=== PATIENT | female | born 1985 | race African-American/Black ===

== ENCOUNTER 2017-06-24 17:38 | Emergency (ER) | payer BC, OTHER ==
[~2017-06-24] VITALS: Ht 175.3 cm; Wt 136.1 kg
--- NOTE | ~2017-06-24 | EKG ---
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
[~2017-06-24 17:38] MED LIST: A.E.R PADS1 JAR TOP; ACETAMINOPHEN-120 ML PO; AMOXICILLIN 50500 MG PO; APAP W/CODEINE1 TA2 PO; DERMOPLAST SPRA56 ML; ESCITALOPRAM OX10 MG PO; FLAGYL500 MG PO; FLONASE 0.05%50 MCG NASAL; IBUPROFEN 600600 M1 PO; IBUPROFEN 800800 M1 PO; LANOLIN56 GM; LEXAPRO 10 MG T10 MG PO; NOHOMEMEDICATIONS; NORCO 5-325 TA1 EACH PO; PREDNISONE 20 M20 M1 PO; PROCTOFOAM-HC F10 G1 RE; TAMIFLU PO; TESSALON PERLE100 MG PO; VENTOLIN17 GM INH; ZOFRAN4 MG PO; ZPAK PO
[2017-06-24] MEDS ORDERED: NEXPLANON68 MG SW&SWALLOW (18:56)
[2017-06-24 18:58] LABS: ABSOLUTE NEUTROPHILS 2.9 thou/uL (1.4-8.2); BASOPHILS 0.4 % (0.0-2.0); EOSINOPHILS 1.7 % (0.0-3.0); HEMATOCRIT 39.8 % (37.0-47.0); HEMOGLOBIN 12.9 gm/dL (12.0-15.0); LYMPHOCYTES 38.4 % (24.0-44.0); MCH 25.9 pg (26.0-34.0); MCHC 32.5 g/dL (28.0-37.0); MCV 79.6 fL (80.0-100.0); PLATELET COUNT 310 thou/uL (150-400); POLYS 54.5 % (36.0-66.0); RBC 4.99 mil/uL (4.20-5.00); RDW 13.5 % (10.5-14.5); WBC 5.3 thou/uL (4.0-11.0)
[2017-06-24 19:10] LABS: CALCIUM 8.7 mg/dL (8.5-10.1); CREATININE 0.8 mg/dL (0.6-1.0); POTASSIUM 3.7 mmol/L (3.5-5.1)
== END 2017-06-24 19:40 | disposition home or self-care (01) ==
LOC: ER 17:38
PROVIDERS: Physician Assistant
DX: R07.89 Other chest pain (principal); F17.210 Nicotine dependence, cigarettes, uncomplicated; F10.99 Alcohol use, unspecified with unspecified alcohol-induced disorder; Z88.1 Allergy status to other antibiotic agents

== ENCOUNTER 2017-09-05 21:39 | Emergency (ER) | payer BC, OTHER ==
[~2017-09-05] VITALS: Ht 175.3 cm; Wt 136.1 kg
[~2017-09-05 21:39] MED LIST changes: +NEXPLANON68 MG SW&SWALLOW
[2017-09-05] MEDS ORDERED: AMOXICILLIN500 M1 PO (21:47)
[2017-09-05] MEDS ORDERED: LOESTRIN FE 1-1 EACH PO (21:51)
[2017-09-05 22:24] VITALS: BP 161/95
== END 2017-09-05 22:25 | disposition home or self-care (01) ==
LOC: ER 21:39
DX: J02.0 Streptococcal pharyngitis (principal); F17.210 Nicotine dependence, cigarettes, uncomplicated; Z88.1 Allergy status to other antibiotic agents

== ENCOUNTER 2018-07-07 10:46 | Emergency (ER) | payer BC, OTHER ==
[~2018-07-07] VITALS: Ht 175.3 cm; Wt 141.1 kg
[~2018-07-07 10:46] MED LIST changes: +AMOXICILLIN500 M1 PO; +LOESTRIN FE 1-1 EACH PO
[2018-07-07 11:41] LABS: URINE BILIRUBIN NEGATIVE (Negative); URINE BLOOD 1+ (Negative); URINE CLARITY CLEAR; URINE COLOR YELLOW; URINE GLUCOSE-RANDOM* NEGATIVE (Negative); URINE KETONES NEGATIVE (Negative); URINE LEUKOCYTES-REFLEX 2+ (Negative); URINE NITRITE-REFLEX NEGATIVE (Negative); URINE PROTEIN (DIPSTICK) NEGATIVE (Negative); URINE SPECIFIC GRAVITY <= 1.005 (1.005-1.035); URINE UROBILINOGEN 0.2 E.U./dl (0.2-1.0)
[2018-07-07 11:54] LABS: CASTS None Seen /LPF (None Seen); CRYSTALS None Seen /LPF (None Seen); SQUAMOUS >10 Many /LPF (0-3)
[2018-07-07 11:55] LABS: URINE RBC 0-2 Rare /HPF (0-2); URINE WBC-REFLEX 6-15 Few /HPF (0-5)
[2018-07-07 12:02] LABS: ABSOLUTE NEUTROPHILS 2.2 thou/uL (1.4-8.2); BASOPHILS 0.3 % (0.0-2.0); HEMOGLOBIN 12.9 gm/dL (12.0-15.0); LYMPHOCYTES 40.5 % (24.0-44.0); MCH 26.2 pg (26.0-34.0); MCHC 33.1 g/dL (28.0-37.0); MCV 79.1 fL (80.0-100.0); MONOCYTES 5.4 % (1.0-8.0); PLATELET COUNT 270 thou/uL (150-400); POLYS 52.8 % (36.0-66.0); RBC 4.93 mil/uL (4.20-5.00); RDW 14.4 % (10.5-14.5); WBC 4.1 thou/uL (4.0-11.0)
[2018-07-07 12:10] LABS: CREATININE 0.8 mg/dL (0.6-1.0); POTASSIUM 3.7 mmol/L (3.5-5.1)
[2018-07-07 12:46] VITALS: BP 126/75
[2018-07-07] MEDS ORDERED: UNICOMPLEX M TA1 TA1 PO (12:54)
[2018-07-07] MEDS ORDERED: MIRENA1 EACH (12:54)
[2018-07-07] MEDS ORDERED: BIOTIN1 MG PO (12:54)
--- NOTE | 2018-07-08 08:20 | EKG ---
[place] 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1985 Requested By: Ada Karimi Order Number: [id number] MD: Gen Hays Measurements Intervals [place] Rate: 57 P: 4 VT: 169 QRS: 4 QRSD: 87 T: -15 QT: 423 QTc: 412 Interpretive Statements Sinus rhythm Nonspecific T abnormalities Compared to ECG 06/24/2017 18:25:31 Low QRS voltage now present T-wave abnormality now present Electronically Signed On 07-08-2018 8:20:39 CDT by Gen Hays [email or web address] ��������������������������������������������� <ELECTRONICALLY SIGNED> ���������������������������������������� By: Gen Hays MD, [facility] ��������������������������������������������� 07/08/18 0820 1139 1139 Gen Hays MD, FAC /EPI
== END 2018-07-07 12:46 | disposition home or self-care (01) ==
LOC: ER 10:46
PROVIDERS: Emergency Medicine
DX: N39.0 Urinary tract infection, site not specified (principal); A59.9 Trichomoniasis, unspecified; F41.9 Anxiety disorder, unspecified; F17.210 Nicotine dependence, cigarettes, uncomplicated; Z88.1 Allergy status to other antibiotic agents

== ENCOUNTER 2019-01-30 12:09 | Emergency (ER) | payer OTHER ==
[~2019-01-30] VITALS: Ht 165.1 cm; Wt 142.4 kg
[~2019-01-30 12:09] MED LIST changes: +BIOTIN1 MG PO; +MIRENA1 EACH; +UNICOMPLEX M TA1 TA1 PO
[2019-01-30 12:52] LABS: ABSOLUTE NEUTROPHILS 5.4 thou/uL (1.4-8.2); BASOPHILS 0.3 % (0.0-2.0); EOSINOPHILS 0.2 % (0.0-3.0); HEMOGLOBIN 13.2 gm/dL (12.0-15.0); LYMPHOCYTES 10.9 % (24.0-44.0); MCH 26.3 pg (26.0-34.0); MCHC 32.8 g/dL (28.0-37.0); MCV 80.1 fL (80.0-100.0); MONOCYTES 1.5 % (1.0-8.0); PLATELET COUNT 302 thou/uL (150-400); POLYS 87.1 % (36.0-66.0); RDW 14.2 % (10.5-14.5); WBC 6.1 thou/uL (4.0-11.0)
[2019-01-30 12:58] LABS: ANION GAP 9 mmol/L (7-16); BUN 13 mg/dL (7-18); CHLORIDE 104 mmol/L (98-107); CO2 23 mmol/L (21-32); CREATININE 0.7 mg/dL (0.6-1.0); GLUCOSE 114 mg/dL (74-106); POTASSIUM 3.8 mmol/L (3.5-5.1); SODIUM 136 mmol/L (136-145)
[2019-01-30 13:07] LABS: TROPONIN-I <0.06 ng/mL (<0.06)
[2019-01-30 14:41] VITALS: BP 108/67
--- NOTE | 2019-01-30 17:17 | EKG ---
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1985 Requested By: Cornelio Schafer Order Number: [id number] MD: Gen Hays Measurements Intervals [place] Rate: 75 P: 24 [place]: 154 QRS: 11 QRSD: 86 T: -13 QT: 376 QTc: 420 Interpretive Statements Sinus rhythm Ventricular premature complex Borderline T abnormalities, diffuse leads Compared to ECG 07/07/2018 11:39:33 Ventricular premature complex(es) now present Electronically Signed On 01-30-2019 17:17:03 CDT by Gen Hays [email or web address] <ELECTRONICALLY SIGNED> By: Gen Hays MD, [facility] 01/30/19 1717 1225 1225 Gen Hays MD, FAC /EPI
== END 2019-01-30 14:57 | disposition home or self-care (01) ==
LOC: ER 12:09
PROVIDERS: Emergency Medicine
DX: R00.2 Palpitations (principal); F41.9 Anxiety disorder, unspecified; Z88.1 Allergy status to other antibiotic agents

== ENCOUNTER 2019-04-27 08:26 | Emergency (ER) | payer OTHER ==
[~2019-04-27] VITALS: Ht 175.3 cm; Wt 140.6 kg
[2019-04-27 09:21] LABS: ANION GAP 10 mmol/L (7-16); BASOPHILS 0.4 % (0.0-2.0); BUN 11 mg/dL (7-18); CALCIUM 9.4 mg/dL (8.5-10.1); CHLORIDE 104 mmol/L (98-107); CO2 25 mmol/L (21-32); CREATININE 0.8 mg/dL (0.6-1.0); EOSINOPHILS 1.1 % (0.0-3.0); GLUCOSE 97 mg/dL (74-106); HEMATOCRIT 42.4 % (37.0-47.0); HEMOGLOBIN 13.7 gm/dL (12.0-15.0); MCH 26.3 pg (26.0-34.0); MCHC 32.3 g/dL (28.0-37.0); MCV 81.3 fL (80.0-100.0); MONOCYTES 5.5 % (1.0-8.0); PLATELET COUNT 288 thou/uL (150-400); RBC 5.22 mil/uL (4.20-5.00); RDW 14.4 % (10.5-14.5); SODIUM 139 mmol/L (136-145); WBC 4.8 thou/uL (4.0-11.0)
[2019-04-27 09:30] LABS: TROPONIN-I <0.06 ng/mL (<0.06)
[2019-04-27 09:41] VITALS: BP 121/79
--- NOTE | 2019-04-27 17:24 | EKG ---
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 : 1985 Requested By: Cornelio Schafer Order Number: [id number] MD: Edwin Alonzo Measurements Intervals [place] Rate: 75 P: 28 FL: 162 QRS: 61 QRSD: 89 T: 20 QT: 385 QTc: 430 Interpretive Statements Sinus rhythm Low voltage, precordial leads Borderline T abnormalities, anterior leads Compared to ECG 01/30/2019 12:25:57 Low QRS voltage now present Ventricular premature complex(es) no longer present T-wave abnormality still present Electronically Signed On 04-27-2019 17:24:22 STATEMENT CLERKS MANAGER by Edwin Alonzo [email or web address] <ELECTRONICALLY SIGNED> By: Edwin Alonzo MD 04/27/19 1724 9 9 Edwin Alonzo MD /EPI
== END 2019-04-27 10:18 | disposition home or self-care (01) ==
LOC: ER 08:26
PROVIDERS: Emergency Medicine
DX: R07.9 Chest pain, unspecified (principal); F41.9 Anxiety disorder, unspecified

== ENCOUNTER 2019-05-15 08:18 | Emergency (ER) | payer OTHER ==
[~2019-05-15] VITALS: Ht 172.7 cm; Wt 158.8 kg
--- NOTE | ~2019-05-15 | EKG ---
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
[2019-05-15] MEDS ORDERED: ATIVAN0.5 M1 PO (08:41)
[2019-05-15 09:08] VITALS: BP 135/78
== END 2019-05-15 09:08 | disposition home or self-care (01) ==
LOC: ER 08:18
DX: I49.3 Ventricular premature depolarization (principal); F41.9 Anxiety disorder, unspecified; Z88.1 Allergy status to other antibiotic agents

== ENCOUNTER → 2019-05-29 | Outpatient (CLI) | payer OTHER ==
[~2019-05-29] MED LIST changes: +ATIVAN0.5 M1 PO
== END ==
LOC: SJCVCIMAG 04-24 15:06
DX: I49.3 Ventricular premature depolarization (principal); Z87.891 Personal history of nicotine dependence

== ENCOUNTER 2019-11-02 16:07 | Emergency (ER) | payer OTHER ==
[~2019-11-02] VITALS: Ht 175.3 cm; Wt 140.6 kg
[2019-11-02] MEDS ORDERED: AMOXICILLIN 50500 MG PO (17:54)
[2019-11-02] MEDS ORDERED: PROMETH-CODEIN 65 ML PO (17:55)
[2019-11-02 18:48] VITALS: BP 121/75
--- NOTE | 2019-11-03 08:50 | EKG ---
[facility] [place] [address] ELECTROCARDIOGRAM REPORT Name: JAMES CASTILLO Room #: [facility]P [facility] SERVICES[facility] [id number] Admission: 11/02/19 Attend Phys: Discharge: 11/02/19 Date of : 85 Report #: [id number] THIS REPORT FOR: cc: RONEL Vidal family physician/PCP RONEL - Marcy family physician/PCP Gen Hays MD [facility] THIS REPORT FOR: //name// 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1985 Requested By: Reyna Tejada Order Number: [id number] MD: Gen Hays Measurements Intervals [place] Rate: 70 P: 33 [place]: 167 QRS: 8 QRSD: 92 T: -12 QT: 385 QTc: 416 Interpretive Statements Sinus rhythm Ventricular premature complex Borderline T abnormalities, inferior leads Baseline wander in lead(s) V4 Compared to ECG 05/15/2019 08:24:55 No significant changes Electronically Signed On 11-03-2019 8:50:21 CDT by Gen Hays [email or web address] <ELECTRONICALLY SIGNED> By: Gen Hays MD, [facility] 11/03/19 0850 1840 1840 Gen Hays MD, [facility] /EPI
== END 2019-11-02 18:53 | disposition home or self-care (01) ==
LOC: ER 16:07
DX: R05 Cough (principal); Z20.828 Contact with and (suspected) exposure to other viral communicable diseases; H66.91 Otitis media, unspecified, right ear; R09.81 Nasal congestion; R53.83 Other fatigue; R06.02 Shortness of breath; F41.9 Anxiety disorder, unspecified; Z79.899 Other long term (current) drug therapy; Z88.8 Allergy status to other drugs, medicaments and biological substances

== ENCOUNTER 2020-08-03 16:43 | Emergency (ER) | payer OTHER ==
[~2020-08-03] VITALS: Ht 175.3 cm; Wt 139.7 kg
[~2020-08-03 16:43] MED LIST changes: +PROMETH-CODEIN 65 ML PO
[2020-08-03 17:58] VITALS: BP 120/77
[2020-08-03] MEDS ORDERED: GENTAMICIN SULF15 GM TOP (18:09)
[2020-08-03] MEDS ORDERED: FLAGYL500 M1 PO (18:09)
== END 2020-08-03 18:20 | disposition home or self-care (01) ==
LOC: ER 16:43
DX: L73.2 Hidradenitis suppurativa (principal); Z79.899 Other long term (current) drug therapy; Z88.1 Allergy status to other antibiotic agents

== ENCOUNTER → 2020-08-22 | Outpatient (CLI) | payer OTHER ==
[~2020-08-22] MED LIST changes: +FLAGYL500 M1 PO; +GENTAMICIN SULF15 GM TOP
== END ==
LOC: HYPER 07:50
PROVIDERS: ATTEND Emergency Medicine
DX: L73.2 Hidradenitis suppurativa (principal); E66.01 Morbid (severe) obesity due to excess calories; F17.200 Nicotine dependence, unspecified, uncomplicated; F12.90 Cannabis use, unspecified, uncomplicated; F41.9 Anxiety disorder, unspecified; Z68.42 Body mass index [BMI] 45.0-49.9, adult

== ENCOUNTER → 2020-09-05 | Outpatient (CLI) | payer OTHER | LOC: HYPER 08:54 | PROVIDERS: ATTEND Emergency Medicine | DX: L73.2 Hidradenitis suppurativa (principal); L84 Corns and callosities; E66.01 Morbid (severe) obesity due to excess calories; F17.200 Nicotine dependence, unspecified, uncomplicated; F12.90 Cannabis use, unspecified, uncomplicated; F41.9 Anxiety disorder, unspecified; Z68.42 Body mass index [BMI] 45.0-49.9, adult ==